=== PATIENT | female | born 2000 | race Hispanic/Latino ===

== ENCOUNTER 2023-10-21 12:01 | Emergency (ER) | payer MEDICAID ==
[~2023-10-21] VITALS: Ht 152.4 cm; Wt 96.6 kg
[2023-10-21] MEDS ORDERED: IBUP-2070 PO (14:22)
[2023-10-21 14:33] VITALS: BP 124/61; PULSE 78; RESP 18; O2SAT 99
== END 2023-10-21 14:33 | disposition home or self-care (01) ==
LOC: EDH 12:01
DX: O26.891 Other specified pregnancy related conditions, first trimester (principal); O02.0 Blighted ovum and nonhydatidiform mole; Z3A.10 10 weeks gestation of pregnancy
CPT/HCPCS: 76801

== ENCOUNTER 2023-10-25 01:23 | Emergency (ER) | payer MEDICAID ==
[~2023-10-25] VITALS: Ht 152.4 cm; Wt 97.5 kg
[~2023-10-25 01:23] MED LIST: IBUP-2070 PO
[2023-10-25] MEDS ORDERED: PEG 3350/NA SULF,BICARB,CL/KCL 4000 ML SOLN PO ONE (02:00)
[2023-10-25] MEDS ORDERED: MAGNESIUM HYDROXIDE 30 ML/UDCUP PO SCH (03:30)
[2023-10-25] MEDS ORDERED: DOCU-116 PO (04:16)
[2023-10-25] MEDS ORDERED: NA P133E4 RC (04:16)
[2023-10-25] MEDS ORDERED: ONDANSETRON ODT 4MG TAB ONE (04:39)
[2023-10-25 04:43] VITALS: BP 129/79; PULSE 82; RESP 18; O2SAT 99
[2023-10-25] MEDS ORDERED: ONDANSETRON ODT 4MG TAB SL ONE (05:00)
== END 2023-10-25 05:07 | disposition home or self-care (01) ==
LOC: EDH 01:23
DX: O36.4XX0 Maternal care for intrauterine death, not applicable or unspecified (principal); O99.611 Diseases of the digestive system complicating pregnancy, first trimester; K59.00 Constipation, unspecified; Z3A.10 10 weeks gestation of pregnancy
CPT/HCPCS: 76801

== ENCOUNTER 2023-11-05 07:05 | Day surgery (SDC) | payer MEDICAID ==
[2023-11-03 10:17] LABS: BASOPHILS # (AUTO) 0.04 K/uL (0.00-0.20); BASOPHILS % (AUTO) 0.5 % (0.0-5.0); EOSINOPHILS # (AUTO) 0.17 K/uL (0.00-0.70); EOSINOPHILS % (AUTO) 2.2 % (0.0-8.0); HEMATOCRIT 39.9 % (36-48); IMMATURE GRANULOCYTE ABSOLUTE 0.02 K/uL (0-1); LYMPHOCYTES # (AUTO) 1.7 K/uL (1.0-4.8); LYMPHOCYTES % (AUTO) 22.2 % (21.0-51.0); MEAN CORPUSCULAR HEMOGLOBIN 29.1 pg (27.0-33.0); MEAN CORPUSCULAR HGB CONC 32.6 g/dL (32.0-36.0); MEAN CORPUSCULAR VOLUME 89.5 fL (80-100); MONOCYTES # (AUTO) 0.6 K/uL (0.1-1.0); MONOCYTES % (AUTO) 7.3 % (3.0-13.0); NEUTROPHILS # (AUTO) 5.1 K/uL (1.8-7.7); NEUTROPHILS % (AUTO) 67.5 % (40.0-77.0); PLATELET COUNT (AUTO) 235 K/uL (130-400); RED BLOOD CELL COUNT(AUTO) 4.46 MIL/uL (4.00-5.50); RED CELL DISTRIBUTION WIDTH 13.5 % (11.0-15.5); WHITE BLOOD COUNT (AUTO) 7.6 K/uL (4.8-10.8)
[2023-11-03 10:24] VITALS: BP 133/75; PULSE 73; RESP 16
[~2023-11-05] VITALS: Ht 157.5 cm; Wt 96.7 kg
[2023-11-05] MEDS ORDERED: LIDOCAINE PF 100MG/5ML (2%) SYRINGE 5ML ONE (07:06)
[2023-11-05] MEDS ORDERED: DEXAMETHASONE SOD PHOSPHATE 10MG/ML 1ML VIAL ONE (07:06)
[2023-11-05] MEDS ORDERED: ONDANSETRON 4MG INJ ONE (07:07)
[2023-11-05] MEDS ORDERED: MIDAZOLAM HCL 1 MG/ML 2ML VIAL ONE (07:07)
[2023-11-05] MEDS ORDERED: ROCURONIUM BROMIDE 10MG/1ML 5ML VL ONE (07:07)
[2023-11-05] MEDS ORDERED: NEOSTIGMINE METHYLSULFATE 1MG/ML IV ONE (07:07)
[2023-11-05] MEDS ORDERED: SUCCINYLCHOLINE CHLORIDE 20 MG/ML 10 ML VIAL ONE (07:07)
[2023-11-05] MEDS ORDERED: GLYCOPYRROLATE 0.2 MG/ML 5 ML VIAL ONE (07:07)
[2023-11-05] MEDS ORDERED: PROPOFOL 10 MG/ML 20ML VIAL IV ONE ×2 (07:08→08:43)
[2023-11-05] MEDS ORDERED: FENTANYL CITRATE PF 50 MCG/1 ML 2ML VIAL ONE (07:08)
[2023-11-05] MEDS ORDERED: PHENYLEPHRINE HCL 1% NS ONE (07:12)
[2023-11-05 07:15] VITALS: BP 112/66; PULSE 83; RESP 17
[2023-11-05] MEDS ORDERED: LIDOCAINE HCL 2% JELLY 5 ML ONE (07:16)
[2023-11-05] MEDS: CEFAZOLIN SODIUM 2 GM VIAL IVPB ONE (08:40)
[2023-11-05] MEDS: CEFAZOLIN SODIUM 2 GM VIAL ONE (08:40)
[2023-11-05] MEDS ORDERED: OXYTOCIN 10 USP UNITS/ML ONE (08:55)
[2023-11-05] MEDS: LACTATED RINGERS 1000ML 1,000 ML IV ONE (09:41)
[2023-11-05 10:30] VITALS: BP 105/59; PULSE 81; RESP 18
[2023-11-05 10:45] VITALS: BP 100/61; PULSE 75; RESP 16
[2023-11-05] MEDS ORDERED: IBUP-2088 PO (10:47)
[2023-11-05 11:00] VITALS: BP 106/69; PULSE 78; RESP 19
== END 2023-11-05 11:16 | disposition home or self-care (01) ==
LOC: DAH 07:05
PROVIDERS: ATTEND Obstetrics & Gynecology
DX: O02.1 Missed abortion (principal); E66.01 Morbid (severe) obesity due to excess calories; Z83.3 Family history of diabetes mellitus; Z82.3 Family history of stroke
CPT/HCPCS: 85025; 86850; 86900; 86901; 36415; 59820; 88305; A4663; J7030; A4351 ×2; J7120; J3010; J1100; J0330; J3490 ×5; J2250; J2590; J2405; J2710; J0690 ×2; A4215; A4223; A4213; A4222; A4221; A4600; J2001; J2704